=== PATIENT | female | born 1975 | race Caucasian/White ===

== ENCOUNTER 2017-08-08 13:46 | Emergency (ER) | payer OTHER ==
[~2017-08-08] VITALS: Ht 154.9 cm; Wt 70.3 kg
[~2017-08-08 13:46] MED LIST: NOHOMEMEDS
[2017-08-08 14:52] LABS: HEMATOCRIT 43.3 % (36.0-46.0); HEMOGLOBIN 14.2 G/DL (11.9-15.5); MCH 29.1 PG (29.0-34.0); MCHC 32.8 G/DL (30.0-36.0); MCV 88.7 FL (83-99); PLATELET COUNT 290 K/uL (156-360); RBC DIS.WIDTH-CV 12.7 % (11.8-14.6); RBC DIS.WIDTH-SD 41.2 % (39-53); RED BLOOD COUNT 4.88 M/uL (3.80-5.20); WHITE BLOOD COUNT 8.5 K/uL (4.1-10.2)
[2017-08-08 15:02] LABS: ALBUMIN 4.7 g/dL (3.2-4.8)
[2017-08-08 15:03] LABS: CHLORIDE 107 mEq/L (99-109); POTASSIUM 3.9 mEq/L (3.7-5.4); SODIUM 142 mEq/L (136-147)
[2017-08-08 15:05] LABS: GLUCOSE 135 mg/dL (70-99); TOTAL PROTEIN 8.3 g/dL (6.4-8.3)
[2017-08-08 15:07] LABS: TOTAL BILIRUBIN 0.3 mg/dL (0.0-1.0)
[2017-08-08 15:08] LABS: ALKALINE PHOSPHATASE 88 IU/L (3-129)
[2017-08-08 15:09] LABS: CREATININE 0.8 mg/dL (0.6-1.3); GFR ESTIMATE (CALCULATED) > 59 mL/min/
[2017-08-08 15:10] LABS: AST (GOT) 17 IU/L (2-34); UREA NITROGEN (BUN) 13 mg/dL (9-23)
[2017-08-08 15:12] LABS: ALT (GPT) 11 IU/L (3-49)
[2017-08-08 15:12] LABS: APPEARANCE CLEAR ((CLEAR)); BILIRUBIN NEGATIVE; BLOOD LARGE; COLOR STRAW ((YELLOW)); GLUCOSE (STRIP) NEGATIVE; KETONES 5; LEUKOCYTES NEGATIVE; NITRITE NEGATIVE; PROTEIN (STRIP) NEGATIVE; SPECIFIC GRAVITY 1.009 (1.000-1.030); UROBILINOGEN 0.2 MG/DL (0.2-1.0)
[2017-08-08 15:19] LABS: QUANTITATIVE HCG < 4.0 MIU/ML
[2017-08-08 15:27] LABS: BACTERIA RARE /HPF; EPITHELIAL CELLS RARE /HPF; MUCUS TRACE /LPF; RED BLOOD CELLS TNTC /HPF (0-5); UCUL ADDED? YES; WHITE BLOOD CELLS 0-5 /HPF (0-5)
[2017-08-08 15:56] VITALS: BP 145/83
[2017-08-08 16:54] LABS: THYROTROPIN (TSH) 1.4 MIU/L (0.4-5.5)
== END 2017-08-08 15:56 | disposition home or self-care (01) ==
LOC: EME 13:46
PROVIDERS: Physician Assistant
DX: R53.83 Other fatigue (principal); R42 Dizziness and giddiness
CPT/HCPCS: 80053; 81003; 84443; 84702; 85027; 87086; 99281; 99284